=== PATIENT | female | born 1960 | race Caucasian/White ===

== ENCOUNTER 2021-05-08 11:06 | Emergency (ER) | payer MEDICARE, OTHER ==
[2021-05-08] MEDS ORDERED: SODIUM CHLORIDE 0.9% 1,000 ML IV STA (11:18)
--- NOTE | 2021-05-08 11:19 | ED Physician Documentation ---
PD HPI ALTERED MENTAL STATUS - Stated complaint Stated Complaint: JUMBLED WORDS/SEIZING - History obtained from History obtained from: Friend (Information mainly from the patient's cousin as the patient was nonresponsive on presentation.) - History of Present Illness Timing - onset: Today (The patient is visiting from [facility] and arrived yesterday. The patient's relatives as they talk often in the patient is usually conversant. She seemed well coming in and they had dinner last night and a couple of drinks over dinner. She seemed okay then. This morning patient is confused.), Other (The patient was having trouble with sentence completion and seemed confused and slightly sleepy this morning. Her relative called other relatives back in [place] and checked that this was unusual for the patient. Confirmed this is unusual. On route to the ER the patient had seizure in car.) Timing - duration: Hours Timing - details: Abrupt onset (abruptly confused this morning, and then new onset seizure enroute to ER. Still unresponsive coming into ER.), Still present Quality / character: Less responsive, Confused Associated symptoms: No: Fever, Headache, Dyspnea, Cough (none reported from her relative - pt seemed okay yesterday when arrived from airport.) Contributing factors: No: Recent med change, Recent illness Basline status: Alert and oriented X 3 (some mild word search at times, per friend.), Ambulatory Similar symptoms before: Has not had sx before Review of Systems Unable to obtain: Unresponsive, AMS PD PAST MEDICAL HISTORY - Past Medical History Cardiovascular: None Respiratory: None Neuro: Other (Report of patient having a 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 No report of seizures. She has a shunt in place. This was in [facility].) Endocrine/Autoimmune: None : Other (kidney cancer?) - Present Medications Home Medications: Ambulatory Orders Medication Instructions Recorded Confirmed Dasatinib [Sprycel] 1 tab PO DAILY 05/08/21 05/08/21 Escitalopram [Lexapro] 1 tab PO DAILY 05/08/21 05/08/21 Levothyroxine [Synthroid] 1 tab PO DAILY 05/08/21 05/08/21 - Allergies Allergies/Adverse Reactions: Allergies Allergy/AdvReac Type Severity Reaction Status Date / Time Unable to Assess Allergy Verified 05/08/21 11:19 PD ED PE NORMAL - Vitals Vital signs reviewed: Yes - General General: No acute distress, Well developed/nourished, Other (She is brought in f rom the car unresponsive with pallor. She is breathing with some sonorous sounds. She stirs to tactile stimulus but not verbal.) - HEENT HEENT: Atraumatic, Other (mild right lateral tongue biting) - Neck Neck: No adenopathy - Cardiac Cardiac: RRR, No murmur - Respiratory Respiratory: Clear bilaterally - Abdomen Abdomen: Normal bowel sounds, Soft, Non distended - Derm Derm: Warm and dry, No rash. No: Normal color (pallor) - Extremities Extremities: No edema, No calf tenderness / cord - Neuro Eye Opening: To Pain Motor: Localizes to Pain Verbal: Incomprehensible GCS Score: 9 Results - Vitals Vitals: Vital Signs - 24 hr 05/08/21 05/08/21 05/08/21 11:20 11:22 12:01 Temperature 35.5 C L Heart Rate 73 93 98 Respiratory 16 16 16 Rate Blood Pressure 156/72 H 144/70 H O2 Saturation 90 L 98 96 05/08/21 05/08/21 05/08/21 12:12 12:46 13:00 Temperature Heart Rate 94 100 96 Respiratory 18 17 15 Rate Blood Pressure 144/70 H 143/69 H 147/61 H O2 Saturation 97 93 93 05/08/21 05/08/21 14:00 14:44 Temperature Heart Rate 82 85 Respiratory 18 Rate Blood Pressure 107/64 O2 Saturation Oxygen O2 Source Nasal cannula - Labs Labs: Laboratory Tests 05/08/21 05/08/21 05/08/21 11:11 11:11 11:11 WBC 13.3 H RBC 3.53 L Hgb 10.1 L Hct 34.4 L MCV 97.5 MCH 28.6 MCHC 29.4 L RDW 16.2 H Plt Count 318 MPV 8.6 Neut # (Auto) 7.0 H Lymph # (Auto) 4.4 H Denali # (Auto) 1.5 H Eos # (Auto) 0.3 Baso # (Auto) 0.1 Absolute Nucleated RBC 0.00 Nucleated RBC % 0.0 Sodium 142 Potassium 4.3 Chloride 106 Carbon Dioxide 17 L Anion Gap 19.0 H BUN 30 H Creatinine 1.5 H Estimated GFR (MDRD) 35 L Glucose 179 H POC Whole Bld Glucose 181 H Calcium 9.9 Magnesium 2.3 Total Bilirubin 0.6 AST 24 ALT 14 Alkaline Phosphatase 85 Total Protein 9.0 H Albumin 4.0 Globulin 5.0 H Albumin/Globulin Ratio 0.8 L Lipase 74 H TSH Thyroxine (T4) Free T3 pg/mL Urine Color Urine Clarity Urine pH Ur Specific [place] Urine Protein Urine Glucose (UA) Urine Ketones Urine Occult Blood Urine Nitrite Urine Bilirubin Urine Urobilinogen Ur Leukocyte Esterase Urine RBC Urine WBC Ur Squamous Epith Cells Urine Bacteria Urine Mucus Ur Microscopic Review Urine Culture Comments Nasal Adenovirus (PCR) Nasal B. parapertussis DNA (PCR) Nasal Coronavir 229E PCR Nasal Coronavir HKU1 PCR Nasal Coronavir NL63 PCR Nasal Coronavir OC43 PCR Nasal Enterovir/Rhinovir PCR Nasal Influenza B PCR Nasal Influenza A PCR Nasal Parainfluen 1 PCR Nasal Parainfluen 2 PCR Nasal Parainfluen 3 PCR Nasal Parainfluen 4 PCR Nasal RSV (PCR) Nasal B.pertussis DNA PCR Nasal C.pneumoniae (PCR) Alexandru Human Metapneumo PCR Nasal M.pneumoniae (PCR) Nasal SARS-CoV-2 (PCR) Salicylates < 6.0 Urine Opiates Screen Ur Oxycodone Screen Urine Methadone Screen Ur Propoxyphene Screen Acetaminophen < 10 L Ur Barbiturates Screen Ur Tricyclics Screen Ur Phencyclidine Scrn Ur Amphetamine Screen U Methamphetamines Scrn U Benzodiazepines Scrn Urine Cocaine Screen U Cannabinoids Screen Ethyl Alcohol < 5.0 05/08/21 05/08/21 05/08/21 11:11 11:11 12:07 WBC RBC Hgb Hct MCV MCH MCHC RDW Plt Count MPV Neut # (Auto) Lymph # (Auto) Denali # (Auto) Eos # (Auto) Baso # (Auto) Absolute Nucleated RBC Nucleated RBC % Sodium Potassium Chloride Carbon Dioxide Anion Gap BUN Creatinine Estimated GFR (MDRD) Glucose POC Whole Bld Glucose Calcium Magnesium Total Bilirubin AST ALT Alkaline Phosphatase Total Protein Albumin Globulin Albumin/Globulin Ratio Lipase TSH 26.44 H Thyroxine (T4) 10.93 Free T3 pg/mL 2.14 L Urine Color Urine Clarity Urine pH Ur Specific [place] Urine Protein Urine Glucose (UA) Urine Ketones Urine Occult Blood Urine Nitrite Urine Bilirubin Urine Urobilinogen Ur Leukocyte Esterase Urine RBC Urine WBC Ur Squamous Epith Cells Urine Bacteria Urine Mucus Ur Microscopic Review Urine Culture Comments Nasal Adenovirus (PCR) Nasal B. parapertussis DNA (PCR) Nasal Coronavir 229E PCR Nasal Coronavir HKU1 PCR Nasal Coronavir NL63 PCR Nasal Coronavir OC43 PCR Nasal Enterovir/Rhinovir PCR Nasal Influenza B PCR Nasal Influenza A PCR Nasal Parainfluen 1 PCR Nasal Parainfluen 2 PCR Nasal Parainfluen 3 PCR Nasal Parainfluen 4 PCR Nasal RSV (PCR) Nasal B.pertussis DNA PCR Nasal C.pneumoniae (PCR) Alexandru Human Metapneumo PCR Nasal M.pneumoniae (PCR) Nasal SARS-CoV-2 (PCR) Salicylates Urine Opiates Screen NEGATIVE Ur Oxycodone Screen POSITIVE H Urine Methadone Screen NEGATIVE Ur Propoxyphene Screen NEGATIVE Acetaminophen Ur Barbiturates Screen NEGATIVE Ur Tricyclics Screen NEGATIVE Ur Phencyclidine Scrn NEGATIVE Ur Amphetamine Screen NEGATIVE U Methamphetamines Scrn NEGATIVE U Benzodiazepines Scrn NEGATIVE Urine Cocaine Screen NEGATIVE U Cannabinoids Screen POSITIVE H Ethyl Alcohol 05/08/21 05/08/21 12:07 12:42 WBC RBC Hgb Hct MCV MCH MCHC RDW Plt Count MPV Neut # (Auto) Lymph # (Auto) Denali # (Auto) Eos # (Auto) Baso # (Auto) Absolute Nucleated RBC Nucleated RBC % Sodium Potassium Chloride Carbon Dioxide Anion Gap BUN Creatinine Estimated GFR (MDRD) Glucose POC Whole Bld Glucose Calcium Magnesium Total Bilirubin AST ALT Alkaline Phosphatase Total Protein Albumin Globulin Albumin/Globulin Ratio Lipase TSH Thyroxine (T4) Free T3 pg/mL Urine Color YELLOW Urine Clarity CLEAR Urine pH 6.0 Ur Specific [place] >=1.030 H Urine Protein 100 H Urine Glucose (UA) NEGATIVE Urine Ketones NEGATIVE Urine Occult Blood SMALL H Urine Nitrite NEGATIVE Urine Bilirubin NEGATIVE Urine Urobilinogen 0.2 (NORMAL) Ur Leukocyte Esterase NEGATIVE Urine RBC 0-5 Urine WBC 0-3 Ur Squamous Epith Cells FEW Squamous Urine Bacteria Moderate H Urine Mucus Few Strands Ur Microscopic Review INDICATED Urine Culture Comments NOT INDICATED Nasal Adenovirus (PCR) NOT DETECTED Nasal B. parapertussis DNA (PCR) NOT DETECTED Nasal Coronavir 229E PCR NOT DETECTED Nasal Coronavir HKU1 PCR NOT DETECTED Nasal Coronavir NL63 PCR NOT DETECTED Nasal Coronavir OC43 PCR NOT DETECTED Nasal Enterovir/Rhinovir PCR NOT DETECTED Nasal Influenza B PCR NOT DETECTED Nasal Influenza A PCR NOT DETECTED Nasal Parainfluen 1 PCR NOT DETECTED Nasal Parainfluen 2 PCR NOT DETECTED Nasal Parainfluen 3 PCR NOT DETECTED Nasal Parainfluen 4 PCR NOT DETECTED Nasal RSV (PCR) NOT DETECTED Nasal B.pertussis DNA PCR NOT DETECTED Nasal C.pneumoniae (PCR) NOT DETECTED Alexandru Human Metapneumo PCR NOT DETECTED Nasal M.pneumoniae (PCR) NOT DETECTED Nasal SARS-CoV-2 (PCR) NOT DETECTED Salicylates Urine Opiates Screen Ur Oxycodone Screen Urine Methadone Screen Ur Propoxyphene Screen Acetaminophen Ur Barbiturates Screen Ur Tricyclics Screen Ur Phencyclidine Scrn Ur Amphetamine Screen U Methamphetamines Scrn U Benzodiazepines Scrn Urine Cocaine Screen U Cannabinoids Screen Ethyl Alcohol - Rads (name of study) head CT Radiology: Prelim report reviewed (shunt in place. Ventricles decompressed. small area parietal vasogenic edema. No bleed. ), See rad report chest xray Radiology: Prelim report reviewed (no infiltrates), See rad report chest post intubation Radiology: Prelim report reviewed (ETT in position, slightly low. ), See rad report Procedures - Intubation Provider: Emergency physician Medications: Ketamine, Propofol Blade: Glidescope, Other (bougee) Tube: Size-enter number (7.5), Cuffed Route: Oral Confirmation: Direct visualization, Bilateral breath sounds, End tidal CO2, Pulse ox, Chest xray Complications: Desaturated (She desaturated transiently due to the marked angioedema and difficulty with bagging prior to intubation. She did maintain spontaneous respirations and had improved oxygenation with the glide scope positioned to open the airway. copious bleeding in back of pharynx from tongue biting prior.) PD MEDICAL DECISION MAKING - ED course Complexity details: considered differential (Confusion and decreased alertness followed by new onset seizure prior to arrival in the ER. Repeat seizure here in the ER treated with Ativan and then Keppra 500 mg. The seizure did stop and she is maintaining airway well with good oxygenation. She did not become fully alert but was arousing.), d/w family ED course: She had a subsequent repeat seizure after CT scan and was given Ativan 1 mg IV again as she was maintaining clenching in the seizure was not stopping after a minute or so. The seizure did not stop. I ordered another 500 mg of Keppra for a total of 1 g. However prior to starting that infusion, the patient was noted to have some swelling develop in the submandibular area and having some sonorous breathing and her oxygenation decreased below 90%. Airway positioning was done but she still seem to be having difficulty. We quickly moved towards intubation. The patient was given propofol IV to relax her muscles and this did provide a relaxed tone to allow for attempted intubation. However it was edema developing around the oropharynx making it more difficult. Difficult airway techniques were used and subsequently we were able to provide a dedicated airway. It is unclear the cause of the abrupt angioedema. She had received Decadron for the vasogenic edema, Ativan for the seizure and a dose of Keppra. I would most likely think the Keppra at this point. The second dose of Keppra was held. I was able to talk to the form layer at [facility] who accepted transfer of the patient. No other particular changes in therapy at this time were suggested. The patient is transferred in critical condition though stable with dedicated airway, good vital signs and oxygenation and blood pressure. She is maintaining sedated with propofol and will paralyze as well with vecuronium. - Critical Care Time(min): 65 Time Includes: Direct patient care, Reassess patient, Document care, Coordinate care, Medical consult Data interpretation: Labs, Pulse ox, CXR Procedures excluded from critical care time: Intubation Departure - Departure Disposition: 02 Transfer Acute Care Hosp Clinical Impression: New onset seizure, Brain metastases, Status epilepticus Angioedema Qualifiers: Encounter type: initial encounter Qualified Code(s): T78.3XXA - Angioneurotic edema, initial encounter Altered mental status Qualifiers: Altered mental status type: delirium Qualified Code(s): R41.0 - Disorientation, unspecified Condition: Stable Record reviewed to determine appropriate education?: Yes
[2021-05-08 11:24] LABS: BASOPHILS # (AUTO) 0.1 10^3/uL (0.0-0.1); BASOPHILS % (AUTO) 0.5 %; EOSINOPHILS # (AUTO) 0.3 10^3/uL (0.0-0.7); HCT - HEMATOCRIT 34.4 % (37.0-47.0); HGB - HEMOGLOBIN 10.1 g/dL (12.0-16.0); LYMPHOCYTES # (AUTO) 4.4 10^3/uL (1.5-3.5); LYMPHOCYTES % (AUTO) 33.2 %; MEAN CORPUSCULAR HEMOGLOBIN 28.6 pg (27.0-31.0); MEAN CORPUSCULAR HGB CONC 29.4 g/dL (32.0-36.0); MEAN CORPUSCULAR VOLUME 97.5 fL (81.0-99.0); MEAN PLATELET VOLUME 8.6 fL (7.9-10.8); MONOCYTES # (AUTO) 1.5 10^3/uL (0.0-1.0); NEUTROPHILS % (AUTO) 53.1 %; PLT - PLATELET COUNT 318 10^3/uL (130-450); RED BLOOD COUNT 3.53 10^6/uL (4.20-5.40); RED CELL DISTRIBUTION WIDTH 16.2 % (12.0-15.0); WHITE BLOOD COUNT 13.3 x10^3/uL (4.8-10.8)
[2021-05-08] MEDS ORDERED: LORazepam 2 MG/ML VIAL IVP STA ×2 (11:30→13:37)
[2021-05-08] MEDS ORDERED: LORazepam 2 MG/ML VIAL ONE (11:36)
[2021-05-08 11:38] LABS: ACETAMINOPHEN < 10 ug/mL (10-30); ALBUMIN/GLOBULIN RATIO 0.8 (1.0-2.2); ALKALINE PHOSPHATASE 85 IU/L (42-121); ALT ALANINE AMINOTRANSFERASE 14 IU/L (10-60); AST ASPARTATE AMINOTRANSFERASE 24 IU/L (10-42); BILIRUBIN,TOTAL 0.6 mg/dL (0.2-1.0); BUN - BLOOD UREA NITROGEN 30 mg/dL (6-20); CALCIUM 9.9 mg/dL (8.5-10.3); CARBON DIOXIDE - CO2 17 mmol/L (21-32); CHLORIDE 106 mmol/L (101-111); CREATININE 1.5 mg/dL (0.4-1.0); ETOH - ETHANOL < 5.0 mg/dL; GFR - MDRD 35 (>89); GLUCOSE 179 mg/dL (70-100); LIPASE 74 U/L (22-51); MAGNESIUM 2.3 mg/dL (1.7-2.8); POTASSIUM 4.3 mmol/L (3.5-5.0); SALICYLATE < 6.0 mg/dL; SODIUM 142 mmol/L (135-145)
[2021-05-08] MEDS ORDERED: levETIRAcetam INJ 500 MG in SODIUM CHLORIDE 0.9% 100ML 100 ML IV STA ×2 (11:39→13:38)
--- NOTE | 2021-05-08 11:48 | CT Report ---
PROCEDURE: HEAD WO INDICATIONS: altered mental status TECHNIQUE: Noncontrast 4.5 mm thick angled axial sections acquired from the foramen magnum to the vertex. For r adiation dose reduction, the following was used: automated exposure control, adjustment of mA and/or kV according to patient size. COMPARISON: Correlation is made with the accompanying chest radiograph, 05/08/2021. FINDINGS: Image quality: Excellent. CSF spaces: There is a left parietal approach ventriculostomy catheter seen, with the tip coursing t hrough the left parietal lobe, common to rest at the left basal cistern. Basal cisterns are patent. No extra-axial fluid collections. Ventricles are normal in size and shape. Brain: Generalized vasogenic edema can be seen along the course of the catheter. No midline shift. Small amount of hyperdensity can be seen involving the gyri of both frontal lobes superiorly and late rally, as on series 3 images 16 through 22. There is focal hyperdense thickening seen along the left anterior falx, as on series 3 images 18 and 19, which measures up to 8 mm. Canales-white matter interfac e is normal. Skull and face: Left-sided craniotomy changes are seen. Calvarium and visualized facial bones are in tact, without suspicious lesions. Sinuses: Visualized sinuses and mastoids are clear. IMPRESSION: Mild hyperdensity can be seen involving the cortex of both frontal lobes. Subarachnoid hemorrhage is considered to be unlikely, although it is possible. Subacute injury or cortical laminar necrosis or p ossible. Please correlate with known patient history. Left parietal region vasogenic edema. Left parietal approach ventriculostomy catheter, as described above. No oz hydrocephalus. Left-sided craniotomy changes are seen. Likely 8 mm meningioma along the left aspect of the anterior falx. When clinically appropriate, please consider a dedicated seizure protocol (without and with contrast ) MRI for further evaluation (assuming that there is no contraindication). Reviewed by: Db Etienne MD on 05/08/2021 10:47 AM LYNN Approved by: Db Etienne MD on 05/08/2021 10:47 AM LYNN Station ID: [id number]
--- NOTE | 2021-05-08 11:50 | XRAY Report ---
PROCEDURE: Chest 1 View X-Ray INDICATIONS: altered mental status TECHNIQUE: One view of the chest was acquired. COMPARISON: Correlation is made with the accompanying head CT, 05/08/2021. FINDINGS: Surgical changes and devices: Left-sided ventriculoperitoneal shunt catheter tubing can be seen. Left upper quadrant postoperative clips are seen. Lungs and pleura: No pleural effusions or pneumothorax. Patchy bilateral interstitial type infiltrat es are seen. Mediastinum: The aorta is prominent and tortuous. The cardiac contours are within normal limits. Bones and chest wall: No suspicious bony lesions. Age-appropriate degenerative changes are seen. O verlying soft tissues appear unremarkable. IMPRESSION: Interstitial prominence is seen, which is nonspecific. Differential diagnosis includes pulmonary tabatha a and artifact. Please also consider COVID pneumonia. Postoperative changes are seen. Reviewed by: Db Etienne MD on 05/08/2021 10:48 AM LYNN Approved by: Db Etienne MD on 05/08/2021 10:48 AM LYNN Station ID: [id number]
[2021-05-08 12:20] LABS: MUDS CUTOFF CONCENTRATIONS CUTOFF CONC BELOW:
[2021-05-08] MEDS ORDERED: DEXAMETHASONE 10 MG/ML VIAL IVP STA (12:35)
[2021-05-08 12:45] LABS: AMPHETAMINE SCREEN,URINE NEGATIVE (NEGATIVE); BARBITURATE SCREEN,UR NEGATIVE (NEGATIVE); BENZODIAZEPINES SCREEN, URINE NEGATIVE (NEGATIVE); COCAINE SCREEN URINE NEGATIVE (NEGATIVE); METHADONE SCREEN, URINE NEGATIVE (NEGATIVE); METHAMPHETAMINES SCREEN, URINE NEGATIVE (NEGATIVE); OPIATE SCREEN, URINE NEGATIVE (NEGATIVE); OXYCODONE SCREEN, URINE POSITIVE (NEGATIVE); PROPOXYPHENE SCREEN, URINE NEGATIVE (NEGATIVE); THC CANNABINOID SCREEN, URINE POSITIVE (NEGATIVE); TRICYCLIC ANTIDEPRESSANT,URINE NEGATIVE (NEGATIVE)
[2021-05-08 12:48] LABS: BILIRUBIN,URINE NEGATIVE (NEGATIVE); CLARITY,URINE CLEAR (CLEAR); GLUCOSE, URINE (UA) NEGATIVE (NEGATIVE); KETONES,URINE (UA) NEGATIVE (NEGATIVE); LEUKOCYTE ESTERASE, URINE NEGATIVE (NEGATIVE); NITRITE,URINE NEGATIVE (NEGATIVE); OCCULT BLOOD,URINE SMALL (NEGATIVE); PROTEIN,URINE 100 mg/dL (NEGATIVE); UROBILINOGEN,URINE 0.2 (NORMAL) E.U./dL (NORMAL)
[2021-05-08 12:56] LABS: BACTERIA,URINE Moderate /HPF (None Seen); MUCUS,URINE Few Strands; RBC,URINE 0-5 /HPF (0-5); SQUAMOUS EPITHELIAL CELL,UR FEW Squamous (<= Few); WBC,URINE 0-3 /HPF (0-5)
[2021-05-08] MEDS ORDERED: PROPOFOL 200 MG/20 ML VIAL IVP STA ×2 (13:45→14:35)
[2021-05-08 14:07] LABS: T4 (THYROXINE) 10.93 ug/dL (6.09-12.23)
[2021-05-08] MEDS ORDERED: KETAMINE 500 MG/10 ML VIAL ONE (14:09)
[2021-05-08 14:11] LABS: FREE T3 2.14 pg/mL (2.5-3.9)
[2021-05-08] MEDS ORDERED: EPINEPHrine 1 MG/ML AMP ONE (14:12)
[2021-05-08 14:16] LABS: B. PARAPERTUSSIS- RESP PCR PAN NOT DETECTED; B. PERTUSSIS- RESP PCR PANEL NOT DETECTED; C. PNEUMONIAE- RESP PCR PANEL NOT DETECTED; CORONAVIRUS 229E-RESP PCR NOT DETECTED; CORONAVIRUS HKU1-RESP PCR NOT DETECTED; CORONAVIRUS NL63-RESP PCR NOT DETECTED; CORONAVIRUS OC43-RESP PCR NOT DETECTED; HUMAN METAPNEUMOVIRUS NOT DETECTED; INFLUENZA A- RESP PCR PANEL NOT DETECTED; INFLUENZA B - RESP PCR PANEL NOT DETECTED; M. PNEUMONIAE- RESP PCR PANEL NOT DETECTED; PARAINFLUENZA VIRUS 1 NOT DETECTED; PARAINFLUENZA VIRUS 2 NOT DETECTED; PARAINFLUENZA VIRUS 3 NOT DETECTED; PARAINFLUENZA VIRUS 4 NOT DETECTED; RHINOVIRUS/ENTEROVIRUS NOT DETECTED; RSV- RESP PCR PANEL NOT DETECTED; SARS-CoV-2 -RESP PCR PANEL NOT DETECTED
[2021-05-08] MEDS ORDERED: diphenhydrAMINE INJ 50 MG/ML VIAL ONE (14:20)
--- NOTE | 2021-05-08 14:28 | ED Physician Documentation ---
ED Addendum - Addendum Addendum: I was called into the room by Dr. Bustillo for assistance with the airway due to angioedema. Anesthesia called at that time as well. Attempted to visualize the cords with a glide scope, cords were visible, but unable to pass a tube or bougie around the swollen tongue. We gave the patient IV epinephrine for possible allergic reaction and IV ketamine to help relax her while maintaining her own airway and breathing. She did have one episode of hypoxia, lasted approximately 45 seconds. Patient would clench and bite on her swollen tongue, leading to increased bleeding. On repeat evaluation with the glide scope, a 7.5 tube was unable to be passed but I was able to pass a bougie and a 7.0 endotracheal tube over the bougie. Equal breath sounds bilaterally. Color change on end-tidal CO2. Chest x-ray reveals the endotracheal tube about 1.5 cm above the berto, the tube was withdrawn about 1 cm.
[2021-05-08] MEDS ORDERED: KETAMINE 500 MG/10 ML VIAL IVP STA (14:32)
[2021-05-08] MEDS ORDERED: EPINEPHrine 1 MG/ML AMP IM STA ×2 (14:32→15:02)
[2021-05-08] MEDS ORDERED: diphenhydrAMINE INJ 50 MG/ML VIAL IVP STA (14:32)
[2021-05-08] MEDS ORDERED: TRANEXAMIC ACID 1,000 MG in SODIUM CHLORIDE 0.9% 100ML 100 ML IV STA (14:37)
[2021-05-08] MEDS ORDERED: TRANEXAMIC ACID IN NACL 1,000 MG/100 ML BAG IV STA (14:42)
[2021-05-08] MEDS ORDERED: PROPOFOL 500 MG/50 ML 500 MG/50 ML VIAL IV STA (14:44)
--- NOTE | 2021-05-08 15:03 | XRAY Report ---
PROCEDURE: Chest for Line Placement INDICATIONS: s/p intubation TECHNIQUE: One view of the chest was acquired. COMPARISON: Earlier on 05/08/2021 FINDINGS: Surgical changes and devices: An endotracheal tube is seen, with the tip 2 cm above the berto. Left -sided BP shunt catheter tubing can be seen. Left upper quadrant postoperative clips are seen. Lungs and pleura: No pleural effusions or pneumothorax. Generalized interstitial prominence can be s een. Mediastinum: Mediastinal contours appear normal. Heart size is normal. Bones and chest wall: No suspicious bony lesions. Overlying soft tissues appear unremarkable. IMPRESSION: The tip of endotracheal tube is seen 2 cm above the berto. Interval worsening of interstitial infiltrates. Reviewed by: Db Etienne MD on 05/08/2021 2:02 PM LYNN Approved by: Db Etienne MD on 05/08/2021 2:02 PM LYNN Station ID: [id number]
[2021-05-08] MEDS ORDERED: VECURONIUM 10 MG VIAL IVP STA (15:10)
[2021-05-08 15:22] LABS: ABG BASE EXCESS -7.5 mmol/L (-2.0-3.0); ABG HCO3 19.1 mmol/L (22.0-26.0); ABG MODE OF VENTILATION SIMV; ABG OXYGEN SATURATION 92 % (94-98); ABG PCO2 44 mmHg (34-45); ABG PH 7.26 (7.35-7.45); ABG PO2 71 mmHg (80-100); ABG TCO2 20.4 MMOL/L (21.0-29.0); ALLEN TEST POSITIVE
[2021-05-08 15:23] LABS: ABG RESPIRATORY RATE 20 b/min
[2021-05-08] MEDS ORDERED: PROPOFOL 200 MG/20 ML VIAL IVP ONE (15:42)
[2021-05-08 15:56] VITALS: BP 113/68
== END 2021-05-08 15:55 | disposition short-term general hospital (02) ==
LOC: ED 11:06
DX: G40.901 Epilepsy, unspecified, not intractable, with status epilepticus (principal); R41.0 Disorientation, unspecified; C79.31 Secondary malignant neoplasm of brain; T78.3XXA Angioneurotic edema, initial encounter; R09.02 Hypoxemia; Z20.822 Contact with and (suspected) exposure to COVID-19; Z85.528 Personal history of other malignant neoplasm of kidney; Z85.89 Personal history of malignant neoplasm of other organs and systems
CPT/HCPCS: 31500; 36415; 36430; 36600; 51701; 70450; 71045; 80053; 80306; 80307; 81001; 82803; 83690; 83735; 84436; 84443; 84481; 85025; 86900; 86901; 87631; 93005; 96365; 96375; 96376; 99291; 99292; G0480; J1200; J2060; P9017; 0202U; 80320; 80329; 81003; 87086; 94770